=== PATIENT | female | born 1985 | race Two or more races ===

== ENCOUNTER 2024-12-08 15:26 | Outpatient (CLI) | payer OTHER ==
[~2024-12-08 15:26] MED LIST: ACIDOPHILUS1 EAC3 PO; AMOX1TAB12 PO; CLARITIN10 M1; FLOVENT DISKUS50 MCG; KETO10TA2 PO; NASONEX17 GM TOP; NORFLEX100MG PO; SUDAFED PE10 MG; ZYRTEC10 MG PO
== END 2024-12-08 15:32 | disposition home or self-care (01) ==
LOC: RAD 15:26
DX: M47.812 Spondylosis without myelopathy or radiculopathy, cervical region (principal)